=== PATIENT | female | born 1940 | race Caucasian/White ===

== ENCOUNTER 2021-10-19 12:19 | Outpatient (REF) | payer OTHER, SELFPAY ==
--- NOTE | ~2021-10-19 | XR_ITS ---
EXAMINATION: XR KNEE, LEFT CLINICAL INFORMATION: Left knee pain. COMPARISON: None TECHNIQUE: Four views of the left knee. FINDINGS: There is an acute, nondisplaced comminuted fracture of the patella Mild to moderate tricompartmental degenerative joint changes are seen with femoral tibial chondrocalcinosis. There is a small suprapatellar joint effusion. Mild soft tissue swelling. XR/XR knee LT 4V IMPRESSION: 1. Acute, comminuted nondisplaced patellar fracture. 2. Small suprapatellar joint effusion. 3. 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
== END 2021-10-19 12:20 | disposition home or self-care (01) ==
LOC: HO.HMGCX 12:19
PROVIDERS: PCP Nurse Practitioner Family; Visit Provider Nurse Practitioner Acute Care
DX: M25.562 Pain in left knee (principal)
CPT/HCPCS: 73564

== ENCOUNTER 2023-06-08 09:23 | Outpatient (AMB) | payer OTHER, SELFPAY ==
--- NOTE | 2023-06-08 09:23 | MHC.OFFWIV ---
Intake Vital Signs 06/08/23 09:31 Height 5 ft 3 in Weight 123 lb BMI 21.8 BP 122/60 Blood Pressure Location Lt brachial Position Sitting Pulse 63 Pulse Source Pulse Oximeter Temp 97.8 F Temp Source Temporal Artery Scan Pulse Oximetry (%) 99 Oxygen Delivery Method Room Air Intake Visit Reasons: EP Bee Sting RT hand Intake Note: pt is here today for bee sting rt hand started 2 days ago Patient Tobacco Use Status: Never used Tobacco Allergies codeine Allergy (Mild, Verified 06/08/23 09:33) Vomiting sulfa Allergy (Mild, Uncoded 10/19/21 12:07) Hives Do you need a note to return to daycare/school/sports/work: No HPI HPI Comments History of Present Illness Details Patient presents to the walk-in today for sick visit 2 days ago she was stung by a bee on her right hand, since has had swelling, warmth, itching and redness to the hand Denies fevers, body aches, chills, nausea, vomiting, dizziness, weakness, syncope Denies shortness of breath, difficulty breathing, difficulty swallowing She has applied topical it is relief without improvement of her symptoms [facility] Social History Patient Tobacco Use Status: Never used Tobacco Review of Systems Const All systems reviewed & are unremarkable except as noted in HPI and below Physical Exam Vital Signs: Last Vital Signs Temp 97.8 F 06/08/23 09:31 Pulse 63 06/08/23 09:31 BP 122/60 06/08/23 09:31 Pulse Ox 99 06/08/23 09:31 Oxygen Delivery Method Room Air 06/08/23 09:31 BMI result Body Mass Index 21.8 General: awake, alert, oriented. Answers questions appropriately. Fully engaged in examination. Skin: warm, dry, intact HEENT: Normocephalic. Hearing intact. Cardiac: External chest normal in appearance. Respiratory: No cough, audible wheezing or stridor. Abdomen: without gross distension. MS: Right hand: Erythema, swelling and warmth entire right hand, more prominent on the dorsal aspect. Extending to the wrist. No discharge, abscess, lymphangitis Neurological: Oriented to person, place, time and situation. Thought process intact. No gait abnormalities appreciated. Psychiatric: Appropriate mood and affect. Good judgment and insight. Assessment & Plan Assessment & Plan (1) Bee sting reaction: Code(s): T63.441A - Toxic effect of venom of bees, accidental (unintentional), initial encounter Plan Continue with ice as needed Prednisone 40 mg p.o. daily for 3 days Hydroxyzine 10 mg p.o. t.i.d. as needed for itching Follow-up with PCP or return here for any new or worsening symptoms Medications: New hydroxyzine HCl 10 mg PO TID PRN 10 tabs 0RF itching prednisone 40 mg (2 x 20 mg) PO DAILY 3 days 6 tabs 0RF Coding Level of Care Code Est Pt Level 3 (22403) Diagnoses Bee sting reaction T63.441A
[2023-06-08 09:31] VITALS: BP 122/60; PULSE 63; TEMP 36.6; O2SAT 99; BMI 21.8
== END 2023-06-08 10:01 | disposition home or self-care (01) ==
PROVIDERS: PCP Nurse Practitioner Family; Visit Provider Registered Nurse Emergency
DX: T63.441A Toxic effect of venom of bees, accidental (unintentional), initial encounter (principal)
CPT/HCPCS: 99213

== ENCOUNTER 2024-10-14 11:02 | Outpatient (REF) | payer OTHER, SELFPAY ==
[2024-10-14 14:16] LABS: Resp Syncy Virus RNA Qual PCR NEGATIVE (Negative); SARS COV2 PCR INHOUSE NEGATIVE (Negative)
== END 2024-10-14 11:03 | disposition home or self-care (01) ==
LOC: HO.LNP 11:02
PROVIDERS: PCP Nurse Practitioner Family; Visit Provider Physician Assistant
DX: R09.89 Other specified symptoms and signs involving the circulatory and respiratory systems (principal); Z20.822 Contact with and (suspected) exposure to COVID-19
CPT/HCPCS: 87637; 99202

== ENCOUNTER 2024-10-14 11:02 | Outpatient (AMB) | payer OTHER, SELFPAY ==
--- OUTSIDE RECORDS SUMMARY | 2021-01-25 08:50 | XMS_ITS | Continuity of Care Document ---
Author Organization [facility] Address [address] [place] [id number] Phone Care Team Providers Care Acid Treater Name Role Phone Nicole Soraida YANG Unavailable Unavailable Allergies, Adverse Reactions, Alerts Substance Reaction Status Criticality OXYCODONE HCL Active No Information PENICILLIN Active No Information Medications Medication Instructions Dosage Effective Dates (start - stop) Status Comments erythromycin 5 mg/gram (0.5 %) eye ointment apply (1CM) by ophthalmic route every bedtime. Put a ribbon into the lower conjunctival sac in both eyes - Active KAPSPARGO SPRINKLE (unknown strength) Not Available - Active DURLAZA (unknown strength) Not Available - Active FLOLIPID (unknown strength) Not Available - Active HYDROCHLOROTHIAZIDE (unknown strength) Not Available - Active Procedures Procedure Date POSTOP FOLLOW-UP VISIT Advance Directives Directive Yes / No Effective Date File Name No Information Encounters Encounter Description Practice Location Reason(s) For Visit Diagnoses Date Provider [facility], [address] [place] [address], NATHANIEL Boyer, [id number], tel:[phone] [facility] YAG laser followup (chief complaint) Presence of pseudophakia Corey Quigley. [address] [place] [address], NATHANIEL Sousa, [id number] , . tel: [phone] [facility], [address] [place] [address], NATHANIEL Boyer, [id number], tel:[phone] [facility] Other secondary cataract, bilateralPresence of pseudophakia Dec-0 1 Corey Quigley. [address] [place] [address], Renu harris, [place], [id number] , [place]. tel: [phone] [facility], [address] [place] [address], Susan f, [place], [id number], [place] tel:[phone] [facility] 1 year followup (chief complaint) Other secondary cataract, bilateralPresence of intraocular lens Nov-0 1 Brad Oscar. [address] [place] [address], Karlbobo steven, [place], [id number] , [place]. tel: [phone] [facility] [facility], [address] [place] [address], Richardlizzy f, [place], [id number], [place] tel:[phone] [facility] a comprehensive exam (chief complaint) Presence of intraocular lensOther secondary cataract, bilateral Oct-2 0 Ponder Oscar. [address] [place] [address], [place] , [place], [id number] , [place]. tel: [phone] [facility], [address] [place] [address], [place]miandonnie , [place], [id number], [place] tel:[phone] [facility] a comprehensive exam (chief complaint) Presence of pseudophakiaOther secondary cataract, bilateralOther subjective visual disturbances Aug-2 0 Chiquita Naqvi. [address] [place] [address], [place] , [place], [id number] , [place]. tel: [phone] [facility], [address] [place] [address], Richardlizzy f, [place], [id number], [place] tel:[phone] [facility] pain and redness (chief complaint) ConjunctivitisPresence of intraocular lens Apr-0 0 Ponder Oscar. [address] [place] [address], [place]torres , [place], [id number] , [place]. tel: [phone] [facility], [address] [place] [address], Richardlizzy f, [place], [id number], [place] tel:[phone] [facility] Post-op Cataract (chief complaint) Post-op Exam Sep-1 9 Ponder Oscar. [address], Renu harris, [place], [id number] , [place]. tel: [phone] [facility], [address], Wilb[place]izzy f, [place], [id number], [place] tel:[phone] [facility] Post-op Cataract (chief complaint) Post-op Exam Oct- 9 Brad Oscar. [address], [place]u st[place], [place], [id number] , [place]. tel: [phone] [facility], [address], Susan f, [place], [id number], [place] tel:[phone] [facility] No Information 9 Corey Quigley. [address], Renu harris, [place], [id number] , [place]. tel: [phone] [facility], [address] [place] [address], Susan f, [place], [id number], [place] tel:[phone] [facility] Post Op Examination (chief complaint) Post-op Exam Sep-0 9 Brad Oscar. [address] [place], Renu harris, [place], [id number] , [place]. tel: [phone] [facility], [address] [place], Susan f, [place], [id number], [place] tel:[phone] [facility] Post-op Cataract (chief complaint) Post-op Exam 9 Ponder Oscar. [address], Renu h[place], [place], [id number] , [place]. tel: [phone] [facility], [address] [place], [place] [address]th [place], Susan f, [place], [id number], [place] tel:[phone] [facility] No Information 9 Nicoleandres Bushna. [address] [place] [address], Renu harris, [place], [id number] , [place]. tel: [phone] [facility], [address] [place] [address] Street, [place] akhtar [place], [id number], [place] tel:[phone] [facility] No Information 9 Nicoleandres Quigley. [address] [place] [address], Renu harris, [place], [id number] , [place]. tel: [phone] [facility], [address] [place] [address], [place] akhtar, [place], [id number], [place] tel:[phone] [facility] cataract evaluation (chief complaint) Age-related nuclear cataract, bilateral 9 Nicole Soraida. [address] [place] [address], Renu harris, NATHANIEL, [id number] , [place]. tel: [phone] Family History Family Member Type Diagnosis Age At Onset No Information Payers Payer name Insurance type Covered alliance party ID Meron huerta(s) NATHANIEL Medicare Part B MB [id number] [facility] Secondary CI [id number] Social History Type Description Quantity Date Captured Comments Alcohol Use Details Unknown Caffeine Use Details Unknown Tobacco Use Status Current non-smoker Smoking Status Never smoker Sex Female Chief Complaint And Reason For Visit From encounter dated '01/25/2021 12:50'. YAG laser followup (chief complaint). Description: The 80 year old female presents for evaluation of YAG laser followup in the right eye and left eye. Patient states VA has increased in both eyes s/pyag laser treatment OU. Denies any pain or discomfort. History Of Present Illness Encounter Date Complaint History Of Prese nt Illness YAG laser followup The 80 year o ld female presents for evaluation of YAG laser followup in the right eye and left eye. Patient states VA has increased in both eyes s/p yag laser treatment OU. Denies any pain or discomfort. 1 year followup The 80 year old female presents for a 1 year followup in the right eye and left eye. Patient states VA OU is doing well. States she has occasional trouble reading small print, mainly notices in dim lighting. Denies any pain, flashes or floaters at this time. a comprehensive exam The 79 Year old female presents for evaluation of a comprehensive exam. in the right eye and left eye.Patient states VA OU has been fine since she was seen in August. No flashes/floater. No pain. a comprehensive exam The 78 Year old female presents for evaluation of a comprehensive exam. in the right eye and left eye.Pt states the vision in OD became magnified yesterday, and shortly after OD magnified, OS began to get wavy and she saw red under the waviness. She states that it has since gone away. Denies any pain at this time.Pt states she fell about five months ago and hit her head but did not go to the doctor for any injuries sustained in the fall. pain and redness The 78 Year old female presents for evaluation of pain and redness. in the left eye. The patient is also complaining of a FBS in the OS. It started about 3 day(s) ago. Near vision is affected occasionally. The condition is described as blurring at times. The patient has tried warm compresses to open her OS in the morning. It has been matted shut. The patient denies concerns with her OD. Post-op Cataract The 77 year old female presents for evaluation of Post-op Cataract in the right > left. Patient states VA OU is doing well although OD is a bit more blurry than OS. OU are feeling fine. THe "hair patient was seeing in OD is still there but much less and now she has to concentrate to see it - temporally. Gtts had been burning OU but are no longer doing that. Does struggle a bit to get gtts in. Post-op Cataract The 77 year old female presents for evaluation of Post-op Cataract. Patient states OD is doing well since sx but states she sees hairs in side of vision. Patient states she is compliant with gtts OU. Post Op Examination Pt presents for a 1 wk p/o. Vision is stable and she denies any discomfort. She is taking the drops as directed. Post-op Cataract The 77 year old female presents for evaluation of Post-op Cataract. Patient states OS is stable and doing well since sx. cataract evaluation The 77 Year old female presents for evaluation of cataract evaluation. in the right eye and left eye. The onset was gradual. Vision in OU is affected. The symptom is constantly. It occurs all the time. The condition is difficulty driving. The condition is described as blurring. Patient presents for a cataract evaluation OU. Patient states VA OU is blurry and has a hard time reading. Patient states she has glare with lights at night OU. Instructions Date Instruction Additional Infor mation RTC as needed. Related to Prese nce of pseudophakia Impression/Plan - Mo federico. Recommend yearly exams w/Dr. Lange. Related to Presence of pseudophakia Return to clinic in 1 month for non-dilated yag follow up. Related to Other secondary cataract, bilateral Impression/Plan - Pe r Dr. Nicole: I discussed the findings with patient. Based upon the clinical findings the patient is a good candidate for a bilateral YAG laser capsulotomy and we will proceed with that today. R/B/A. Consent signed. Related to Other secondary cataract, bilateral Impression/Plan - See plan 1 Rel ated to Presence of intraocular lens Impression/Plan - Monitor. Relat ed to Presence of pseudophakia Impression/Plan - I discussed the findings with patient. Based upon the clinical findings the patient is a good candidate for a bilateral YAG laser capsulotomy and we will proceed with that today. R/B/A. Consent signed. Related to Other secondary cataract, bilateral Return in 1 year Related to Pres ence of intraocular lens Impression/Plan - See plan #1 Re lated to Other secondary cataract, bilateral Impression/Plan - Di scussed the potential need for a YAG laser in the future.RTC in 1 yr for a comprehensive exam Related to Presence of intraocular lens Impression/Plan - Monitor. Relat ed to Other secondary cataract, bilateral Impression/Plan - Monitor. Relat ed to Presence of pseudophakia Impression/Plan - Wi ll continue to monitor. Follow up with in 3 months. Related to Other subjective visual disturbances Return in 2 weeks Related to Con junctivitis Impression/Plan - Monitor Relate d to Presence of intraocular lens Impression/Plan - Di scussed the contagiousness and the time it takes to resolve. Start erythromycin kaur QHS OU for any possible bacterial component Monitor in 2 wks Related to Conjunctivitis Impression/Plan - Co ntinue to take drops as scheduled. Pt continues to see the reflection of the lens/capsule, however it should go away with time.Pt should see their distribution sales representative at the one month elie post surgery for a new SRx.RTC prn Related to Post-op Exam Impression/Plan - Co ntinue drops as scheduled.The hair she is seeing is likely a reflection off the lens. Retina is flat and intact. Denied any flashes of lights and floaters. RTC next week for 1 wk post op Related to Post-op Exam Impression/Plan - Co ntinue to take drops as scheduled. RTC next week for cataract surgery OD Related to Post-op Exam Impression/Plan - Co ntinue drops as scheduled.RTC next week for 1 wk post op Related to Post-op Exam adult daycare coordinator will contact patient to schedule procedure. Related to Age-related nuclear cataract, bilateral Impression/Plan - Ok ay for phaco/IOL OS then OD. Patient desires emmetropia. Related to Age-related nuclear cataract, bilateral Assessments Type Assessment Date assessment Presence of pseudophakia 2020 impression Presence of pseudoph caitlin: Z96.1. PCIOL OU in good position. S/P YAG capsulotomy laser OU w/adequate opening. Patient doing well
--- OUTSIDE RECORDS SUMMARY | 2024-10-14 11:43 | XMS_ITS | Continuity of Care Document ---
Author Name [facility], Medical Address [address] [place] [address] Organization Unknown Address [address] [place] [address] Medications No known medications Problems No known problems
--- OUTSIDE RECORDS SUMMARY | 2024-10-14 11:43 | XMS_ITS | Encounter Summary ---
Author Organization [facility] Address [address] [place] [address] Encounters * CPT with Medical [facility] at [facility] on 2024-09-13 { reasonForRequest : Patient has Breathing issues. , patientReports :& quot;Sputum increase ; Cough; Shortness of breath with exertion , denies :[ Incr eased work of breathing/labored with or without fever , Unable to speak in full sentences without distress , Discoloration of skin -cyanosis , Needs to sleep sittingup, can t catch breath , Shortness of breath in setting of confusion , Cough,fever greater than 2 days , History of asthma, increased use of inhaler , COPD& quot;, Pain with inspiration ], chiefComplaints : Breathing Problems , pmh : Hypertension , allergies : Codeine , otherAllerg ies :null, painAssessment : , visitOutcome : , additionalComments : 83 y.o female complains of Breathing Problems\n\nPt has shortness of breath and weakness since this am . \nShe does have a cough, with clear sputum. \nShe does not have fever / chills/ nausea/ vomiting/body aches or headaches \nShe has no swelling in her legs. \nShe does not have any asthma or COPD. \nShe is talking in full sentences, \nShe has a congested voice but no exp wheeze. \nShe has been taking decongestant but has not been helping \n\nI provided information on the mobile health provider response time and advised the patient and/or caregiver to monitor reported signs and symptoms. I discussed the warning signs of when to seek emergency care. } This 83-year-old female with a history of HTN requested a visit today to address ongoing URIs symptoms for over a week. Patient endorses dry cough and weakness. States she woke up this morning with some shortness of breath which is something she's never experienced before. Patient denies any history of asthma or COPD, former smoker, quit in 1993. Patient denies any chest pain, headaches, dizziness , fever, nausea, vomiting, diarrhea. Patient is eating and drinking normally. Patient is taking OTCcoricidin. Allergy to codeine. Patient presents awake and alert, in no acute distress and speaking full sentences. Her vital signsare reasonably stable and she is afebrile. Nonfocal neurological exam. Normal gait. Normal oropharynx exam. Lungs are clear throughout auscultation. Abdomen is soft, nontender, nondistended. No lower extremity edema. Rapid COVID and flu testing are both negative. We discussed the diagnostic uncertainty of home visits and the risk associated with this. In this case, the patient and I felt this to be an acceptable and reasonable amount of risk given the benefitof avoiding an ED visit. I provided education on the patient's prescription and additional OTC/supportive care therapy. I recommend she continue the Coricidin, follow-up with her PCP this week and present to the emergency department for any new or worsening severe symptoms such as chest pain, severe shortness of breath, high fever, altered mental status. The patient was given the opportunity to ask questions and is agreeable to this plan. ORAL_MEDICATION, POC_FLU_STREP, COVID_TEST [facility] 2024-09-13
--- NOTE | 2024-10-14 11:51 | AM.OFFWIN_ITS ---
Intake Vital Signs 10/14/24 11:52 Height 5 ft 3 in Weight 110 lb BMI 19.5 BP 138/60 Blood Pressure Location Rt brachial Position Sitting Pulse 61 Pulse Source Pulse Oximeter Temp 98.5 F Temp Source Oral Pulse Oximetry (%) 99 Oxygen Delivery Method Room Air Intake Visit Reasons: ep covid test . Intake Note: pt presents with concern for covid d/t exposure Patient Tobacco Use Status: Never used Tobacco Allergies codeine Allergy (Mild, Verified 10/14/24 11:55) Vomiting sulfa Allergy (Mild, Uncoded 10/19/21 12:07) Hives Do you need a note to return to daycare/school/sports/work: No HPI HPI Comments History of Present Illness Details History - The patient is an 83-year-old female p resenting with potential COVID-19 exposure. - The patient's daughter visited and the next day tested positive for COVID-19. - The patient currently has a runny nose , which is a usual symptom for her, and no other significant symptoms such as fever, cough, or shortness of breath. - She denies hx of COPD, asthma, does no t smoke or vape - Only medical hx is hypertension Physical Exam General: Cooperative, healthy appearing, comfortable and no acute distress Orientation/consciousness: Patient oriented x3 Limitations: No limitations Head: Normal to inspection Ears: Hearing grossly normal bilaterally, external ears normal and TM's normal bilaterally Nose: Normal external nose present, Normal nares present with clear congestion Face and sinus: Normal facial exam and Yes sinuses nontender Mouth: Normal oral and palatal mucosa present and moist mucous membranes Throat: Yes tonsils normal, Yes uvula midline. Slight posterior oropharynx erythema, no exudates. Eyes: Appearance normal, both eyes and all related structures Neck: Normal visual inspection, full ROM Respiratory: Normal respiratory effort, able to speak in complete sentences, no respiratory distress, not tachypneic, no tripod positioning and no use of accessory muscles Skin: No rashes or lesions noted Neuro: Patient oriented x3 Extremities: Normal to inspection and Yes no clubbing, cyanosis or edema PFSH Social History Patient Tobacco Use Status: Never used Tobacco Review of Systems Const All systems reviewed & are unremarkable except as noted in HPI and below Physical Exam Vital Signs: Last Vital Signs Temp 98.5 F 10/14/24 11:52 Pulse 61 10/14/24 11:52 BP 138/60 10/14/24 11:52 Pulse Ox 99 10/14/24 11:52 Oxygen Delivery Method Room Air 10/14/24 11:52 BMI result Body Mass Index 19.5 Assessment & Plan Assessment & Plan (1) Close exposure to COVID-19 virus: Code(s): Z20.822 - Contact with and (suspected) exposure to COVID-19 Plan: Plan VSS, pt well appearing and PE remarkable for slight posterior oropharynx erythema. Patient was informed and verbally consented to the use of an ambient scribe for clinic note documentation during this visit Covid-19 Exposure - COVID-19/flu/rsv test was performed and sent to the hospital for analysis. - Thought unlikely, if positive for Covid, due to her age and HTN hx, Paxlovid will be prescribed to reduce symptom severity and duration, with consideration of potential side effects. Patient is aware this is optional and she can treat any symptoms which may develop wiht OTC medications. Coding Level of Care Code New Pt Level 3 (27751) Diagnoses Close exposure to COVID-19 virus Z20.822
[2024-10-14 11:52] VITALS: BP 138/60; PULSE 61; TEMP 36.9; O2SAT 99; BMI 19.5
== END 2024-10-14 12:17 | disposition home or self-care (01) ==
PROVIDERS: PCP Nurse Practitioner Family; Visit Provider Physician Assistant
DX: Z20.822 Contact with and (suspected) exposure to COVID-19 (principal)